=== PATIENT | female | born 1980 | race American Indian/Alaskan Native ===

== ENCOUNTER → 2018-04-23 10:20 | Outpatient (CLI) | payer OTHER, SELFPAY ==
--- NOTE | 2018-04-23 10:22 | DI.RAD.S_ITS ---
PROCEDURE: XR WRIST LT MIN 3V INDICATIONS: Left wrist pain at base of thumb TECHNIQUE: 3 views of the wrist were acquired. COMPARISON: None. FINDINGS: Bones: No fractures or dislocations. No suspicious bony lesions. First CMC joint degeneration. Scaphoid view: No fracture Soft tissues: No suspicious soft tissue calcifications. IMPRESSION: Moderate first CMC joint degeneration Dictated by: Josue Gore M.D. on 04/23/2018 at 11:42 Approved by: Josue Gore M.D. on 04/23/2018 at 11:43
== END ==
PROVIDERS: PCP Family Medicine; Visit Provider Physician Assistant
DX: M18.12 Unilateral primary osteoarthritis of first carpometacarpal joint, left hand (principal); M25.532 Pain in left wrist
CPT/HCPCS: 73110

== ENCOUNTER → 2018-08-13 08:49 | Outpatient (CLI) | payer OTHER, SELFPAY ==
[2018-08-13 11:13] LABS: Free T4, Direct Thyroxine 1.15 ng/dL (0.78-2.19)
== END ==
PROVIDERS: PCP Family Medicine; Visit Provider Family Medicine
DX: E03.9 Hypothyroidism, unspecified (principal)
CPT/HCPCS: 36415; 84439; 84443

== ENCOUNTER → 2019-01-05 07:43 | Outpatient (CLI) | payer OTHER, SELFPAY ==
[2019-01-05 09:27] LABS: Free T4, Direct Thyroxine 1.13 ng/dL (0.78-2.19)
[2019-01-05 09:41] LABS: Thyroid Stimulating Hormone 0.72 uIU/mL (0.47-4.68)
== END ==
PROVIDERS: PCP Family Medicine; Visit Provider Physician Assistant
DX: E03.9 Hypothyroidism, unspecified (principal)
CPT/HCPCS: 36415; 84439; 84443

== ENCOUNTER → 2019-03-02 07:53 | Outpatient (CLI) | payer OTHER, SELFPAY ==
[2019-03-02 09:50] LABS: Free T4, Direct Thyroxine 1.38 ng/dL (0.78-2.19)
[2019-03-02 10:04] LABS: Thyroid Stimulating Hormone 1.05 uIU/mL (0.47-4.68)
== END ==
PROVIDERS: PCP Physician Assistant; Visit Provider Physician Assistant
DX: E03.9 Hypothyroidism, unspecified (principal)
CPT/HCPCS: 36415; 84439; 84443

== ENCOUNTER → 2020-03-17 08:04 | Outpatient (CLI) | payer OTHER, SELFPAY ==
[2020-03-17 09:17] LABS: Hemoglobin A1C% w Est Avg Glu 5.5 % (4.0-6.0)
[2020-03-17 09:27] LABS: Alanine Aminotransferase 21 IU/L (<35); Albumin 4.4 g/dL (3.5-5.0); Albumin Globulin Ratio 1.6 (1.0-2.8); Alkaline Phosphatase 91 U/L (38-126); Aspartate Aminotransferase 30 IU/L (14-36); Bilirubin Total 0.4 mg/dL (0.2-1.3); Blood Urea Nitrogen 17 mg/dL (7-17); Calcium 9.2 mg/dL (8.4-10.2); Carbon Dioxide 25 mmol/L (22-32); Chloride 104 mmol/L (98-107); Cholesterol 148 mg/dL (140-199); Estimated Glomerular Filt Rate > 60.0 mL/min (>60); Globulin 2.7 g/dL (1.7-4.1); Glucose 89 mg/dL (70-100); HDL Cholesterol 43 mg/dL (40-60); HEMOLYSIS < 15 (0-50); LDL Cholesterol Calculated 89 mg/dL (<100); Potassium 4.6 mmol/L (3.4-5.1); Sodium 138 mmol/L (137-145); Total Protein 7.1 g/dL (6.3-8.2); Triglycerides 81 mg/dL (35-150)
[2020-03-17 09:51] LABS: TSH w/ Reflex to FT4 3.02 uIU/mL (0.47-4.68)
== END ==
PROVIDERS: PCP Physician Assistant; Referring Provider Family Medicine; Visit Provider Family Medicine
DX: E03.9 Hypothyroidism, unspecified (principal)
CPT/HCPCS: 36415; 80053; 80061; 83036; 84443

== ENCOUNTER → 2020-06-20 07:10 | Outpatient (CLI) | payer OTHER, SELFPAY ==
[2020-06-20 08:49] LABS: Thyroid Stimulating Hormone 0.029 uIU/mL (0.47-4.68)
[2020-06-20 09:13] LABS: TSH w/ Reflex to FT4 0.03 uIU/mL (0.47-4.68)
[2020-06-20 09:41] LABS: Free T4, Direct Thyroxine 1.73 ng/dL (0.78-2.19)
== END ==
PROVIDERS: PCP Physician Assistant; Referring Provider Family Medicine; Visit Provider Family Medicine
DX: E03.9 Hypothyroidism, unspecified (principal)
CPT/HCPCS: 36415; 84439; 84443

== ENCOUNTER → 2020-10-11 07:58 | Outpatient (CLI) | payer OTHER, SELFPAY ==
[2020-10-11 10:02] LABS: Add Manual Diff / Slide Review NO; Basophils Absolute Auto 0 /uL (0-100); Basophils Percent Auto 0.6 % (0-2); Eosinophils Absolute Auto 100 /uL (0-450); Eosinophils Percent Auto 1.8 % (2-4); Hematocrit 39.4 % (36-46); Hemoglobin 12.7 g/dL (12.0-16.0); Lymphocytes Absolute Auto 2000 /uL (1100-4500); Lymphocytes Percent Auto 30.8 % (25-40); Mean Corpuscular HGB Conc 32.3 % (30-36); Mean Corpuscular Hemoglobin 25.7 PG (26-34); Mean Corpuscular Volume 79.6 fL (80-100); Monocytes Absolute Auto 400 /uL (0-900); Monocytes Percent Auto 5.5 % (3-14); Neutrophils Absolute Auto 3900 /uL (1500-7000); Neutrophils Percent Auto 61.3 % (50-75); Platelet Count 221 X10^3/uL (150-400); Red Blood Cell Count 4.95 X10^6/uL (4.0-5.2); Red Cell Distribution Width 15.4 % (11.6-14.8); White Blood Cell Count 6.4 X10^3/uL (4.5-11.0)
[2020-10-11 10:55] LABS: Thyroid Stimulating Hormone 0.991 uIU/mL (0.47-4.68)
== END ==
PROVIDERS: PCP Physician Assistant; Referring Provider Family Medicine; Visit Provider Family Medicine
DX: E03.9 Hypothyroidism, unspecified (principal); Z13.0 Encounter for screening for diseases of the blood and blood-forming organs and certain disorders involving the immune mechanism
CPT/HCPCS: 36415; 84443; 85025

== ENCOUNTER → 2021-04-03 09:01 | Outpatient (CLI) | payer OTHER, SELFPAY ==
[2021-04-03 09:53] LABS: Add Manual Diff / Slide Review NO; Basophils Absolute Auto 0 /uL (0-100); Basophils Percent Auto 0.5 % (0-2); Eosinophils Absolute Auto 100 /uL (0-450); Eosinophils Percent Auto 1.6 % (2-4); Hemoglobin 14.6 g/dL (12.0-16.0); Lymphocytes Absolute Auto 1800 /uL (1100-4500); Lymphocytes Percent Auto 21.7 % (25-40); Mean Corpuscular Volume 88.3 fL (80-100); Monocytes Absolute Auto 300 /uL (0-900); Neutrophils Absolute Auto 6200 /uL (1500-7000); Neutrophils Percent Auto 73.2 % (50-75); Platelet Count 214 X10^3/uL (150-400); Red Blood Cell Count 4.87 X10^6/uL (4.0-5.2); Red Cell Distribution Width 13.3 % (11.6-14.8); White Blood Cell Count 8.5 X10^3/uL (4.5-11.0)
== END ==
PROVIDERS: PCP Physician Assistant; Referring Provider Family Medicine; Visit Provider Family Medicine
DX: E03.9 Hypothyroidism, unspecified (principal); Z13.0 Encounter for screening for diseases of the blood and blood-forming organs and certain disorders involving the immune mechanism
CPT/HCPCS: 36415; 84443; 85025

== ENCOUNTER → 2022-01-01 10:29 | Outpatient (CLI) | payer OTHER, SELFPAY ==
[2022-01-01 12:23] LABS: Prolactin 26.6 ng/mL (3.0-18.6)
[2022-01-01 12:35] LABS: Follicle Stimulating Hormone 3.07 mIU/mL
[2022-01-01 12:36] LABS: Thyroid Stimulating Hormone 1.12 uIU/mL (0.47-4.68)
== END ==
PROVIDERS: PCP Physician Assistant; Referring Provider Physician Assistant; Visit Provider Physician Assistant
DX: E03.9 Hypothyroidism, unspecified (principal); F33.1 Major depressive disorder, recurrent, moderate; N92.6 Irregular menstruation, unspecified
CPT/HCPCS: 36415; 83001; 84146; 84443

== ENCOUNTER → 2022-01-07 08:05 | Outpatient (CLI) | payer OTHER, SELFPAY ==
[2022-01-07 09:46] LABS: Prolactin 11.6 ng/mL (3.0-18.6)
== END ==
PROVIDERS: PCP Physician Assistant; Referring Provider Physician Assistant; Visit Provider Physician Assistant
DX: N92.6 Irregular menstruation, unspecified (principal)
CPT/HCPCS: 36415; 84146

== ENCOUNTER → 2022-02-19 11:21 | Outpatient (CLI) | payer OTHER, SELFPAY ==
--- NOTE | 2022-02-19 11:23 | DI.US.S_ITS ---
PROCEDURE: US PELVIC COMPLETE INDICATIONS: Irregular menstral bleeding TECHNIQUE: Real-time scanning was performed of the pelvic organs, with image documentation. Additional endovaginal scanning was necessary due to incomplete visualization of the adnexal and endometrial structures by transabdominal scanning. COMPARISON: None. FINDINGS: Uterus: Uterus is anteverted and mildly prominent in size at 11 x 4.8 x 5.6 cm. The myometrium is heterogeneous. The endometrium measures 8.3 mm combined thickness. Along the endometrial stripe, there is a 1.3 by 0.4 x 0.6 cm echogenic focus, which may be related to a polyp, yet no vascular stock can be seen. Ovaries: The ovaries are overall not well seen, secondary to body habitus and overlying bowel gas. The right ovary measures 2.7 x 2.3 x 3.1 cm, with a calculated ovarian volume of 10 cc. The left ovary measures 3.2 x 2.6 x 3.1 cm, with a calculated ovarian volume of 13.4 cc. The ovaries have a normal sonographic appearance. Less than 12 follicles can be seen in each ovary. No adnexal masses are seen. Other: No pathologic free abdominal or pelvic fluid. IMPRESSION: There is a potential 1.3 cm endometrial polyp seen. - Please consider short-term follow-up versus sonohysterogram for further evaluation. We strive to produce accurate, complete, and clear reports of imaging services. To assist us in improving patient care, this report was composed using standard report templates and voice recognition software. Therefore, it may contain abnormal punctuation, insertions and/or omissions. Occasional wrong-word or sound-alike substitutions may occur. Though we review the report and make efforts to correct it, we do recommend that the report be read carefully in proper context to recognize any text inaccuracies. Dictated by: David Kim M.D. on 02/19/2022 at 12:54 Approved by: David Kim M.D. on 02/19/2022 at 12:57
== END ==
PROVIDERS: PCP Physician Assistant; Referring Provider Obstetrics & Gynecology; Visit Provider Obstetrics & Gynecology
DX: N92.6 Irregular menstruation, unspecified (principal)
CPT/HCPCS: 76830; 76856

== ENCOUNTER → 2022-03-19 10:33 | Outpatient (CLI) | payer OTHER, SELFPAY ==
[2022-03-19 12:29] LABS: Free T3, Triiodothyronine Free 3.64 pg/mL (2.77-5.27); Free T4, Direct Thyroxine 2.63 ng/dL (0.78-2.19)
[2022-03-19 12:55] LABS: Thyroid Stimulating Hormone < 0.015 uIU/mL (0.47-4.68)
== END ==
PROVIDERS: PCP Physician Assistant; Referring Provider Obstetrics & Gynecology; Visit Provider Obstetrics & Gynecology
DX: E03.9 Hypothyroidism, unspecified (principal)
CPT/HCPCS: 36415; 84439; 84443; 84481

== ENCOUNTER → 2022-03-21 14:39 | Outpatient (CLI) | payer OTHER, SELFPAY ==
[2022-03-21 15:29] LABS: COVID19 -Nasal RAPID Negative (Negative)
== END ==
PROVIDERS: PCP Physician Assistant; Visit Provider Obstetrics & Gynecology
DX: Z01.812 Encounter for preprocedural laboratory examination (principal); Z20.822 Contact with and (suspected) exposure to COVID-19
CPT/HCPCS: 87635

== ENCOUNTER 2022-03-22 09:29 | Day surgery (SDC) | payer OTHER, SELFPAY ==
[2022-03-18 13:50] VITALS: BMI 35.5
--- NOTE | 2022-03-22 | PATH_ITS ---
[facility] Accession Number: [id number] . 01 Material submitted: . endometrium - ENDOMETRIAL CURETTINGS . 01 Clinical history: . D/C HYSTEROSCOPY W/POLYPECTOMY . 01 Diagnosis: Endometrial Curettings: Portions of proliferative endometrium with patchy regions of stromal breakdown; negative for glandular hyperplasia, cytologic atypia, or malignancy. Some endometrial fragments demonstrate prominent vessels, suggestive of polyp, if clinical and imaging studies are concordant. MRV 03/26/2022 1118 Local . 01 Electronically signed: . Meghna Randle MD, Pathologist NPI- [id number] . 01 Gross description: . Received in formalin, labeled with the patient's name and endometrial curettings, and consists of multiple red-brown soft tissue fragments admixed with mucohemorrhagic material aggregating to 2.6 x 2.3 x 0.4 cm. The specimen is filtered into a biopsy bag and submitted entirely in cassette A1. ([id number]) /[facility] 03/23/2022 1328 Local . 01 Pathologist provided ICD-10: N92.6 . 01 CPT . 917138 Specimen Comment: A courtesy copy of this report has been sent to [phone] Performed at: 01 [facility] [address], [place], [place] [id number] MD Landen Haynes MD Phone: [phone]
[2022-03-22 09:57] VITALS: BMI 35.5
[2022-03-22 10:07] VITALS: BP 134/87; PULSE 73; RESP 12; TEMP 36.2; O2SAT 99
[2022-03-22] MEDS: LACTATED RINGERS 1,000 ML 100 ML IV (10:44)
--- NOTE | 2022-03-22 11:28 | PM.PREOP ---
Pre-operative Note COVID-19 COVID-19 status: Negative Result date/Date tested (Pos, Neg/Pending): 03/21/22 Criteria for continued procedure: Non-surgical alternatives not available or appropriate per current SOC Interval Note History & Physical reviewed/Exam performed by Physician: Yes Changes to H&P: No H&P completed within 30 days and has changed as indicated here:: 03/19/22
--- NOTE | 2022-03-22 11:30 | PM.GYNOP.1 ---
Operative Date/Time/Diagnoses Date of procedure: 03/22/22 Time of procedure: 11:30 Procedure & Clinicians Procedure: Procedures Operation Date: 03/22/22 11:00 <No data on this case meets the specified criteria>
[2022-03-22] MEDS: ACETAMINOPHEN 325 MG TABLET 975 MG PO (11:35)
--- NOTE | 2022-03-22 12:28 | SUR.OPER ---
Lithotomy on padded OR bed, head on pillow, arms secured on padded arm boards at <90 degrees abduction. Legs secured in padded yellow fins stirrups. Patient glasses brought with patient to the OR and then to PACU. Patient requested.
[2022-03-22 12:35] VITALS: BP 100/67; PULSE 82; RESP 14; TEMP 36.1; O2SAT 99
--- NOTE | 2022-03-22 12:37 | PM.GYNOP.1 ---
Operative Date/Time/Diagnoses Date of procedure: 03/22/22 Time of procedure: 12:37 Pre-op diagnosis: Abnormal uterine bleeding Dysmenorrhea Post-op diagnosis: same Procedure & Clinicians Procedure: Procedures Operation Date: 03/22/22 11:00 Actual Procedure Side Surgeon janette Parish Hysteroscopy Gina Dennis MD and Novasure endometrial ablation Indications: Abnormal uterine bleeding Dysmenorrhea Surgeon: Gina Dennis Anesthesia Type: General (LMA) Operative Notes Findings: 8 week size anteverted uterus Large amount of endometrial curettings Both fallopian tube ostia observed Closure Type: not applicable Specimen(s): endometrial curettings Estimated blood loss (mL): 10 Blood products transfused: none Procedure in detail: After informed consent was obtained, the patient was taken to the operating room where she was placed in the dorsal supine position. After adequate LMA general anesthesia was achieved, she was placed in the dorsal lithotomy position, and prepped and draped in the usual sterile fashion. A time-out was performed. A bivalve speculum was placed into the vagina and the anterior lip of the cervix was grasped with a single-tooth tenaculum. The cervical os was sequentially dilated until the hysteroscope could pass easily into the endometrial cavity. Inspection with the hysteroscope revealed both fallopian tube ostia. There was a small amount of thickened endometrial lining. The hysteroscope was removed. Sharp curettage was performed yielding a moderate amount of endometrial curettings. The sure sound was placed into the endometrial cavity and the cervical stopper deployed. This was pulled against the internal os. The endometrial cavity was measured from the fundus to the internal os and measured 6 cm. This was set on the NovaSure generator and the catheter. The sure sound was removed. The NovaSure catheter passed easily into the endometrial cavity to the fundus of the uterus. Catheter was opened. The with was 3 cm. This was set on the generator. This indicated a power of 107 w. The cervix was capped, the cavity assessment was performed and passed. The cycle was initiated and lasted 41 seconds. At the completion of the cycle the NovaSure catheter was closed, the cervix was uncapped, and the catheter was removed from the uterus. The single-tooth tenaculum was removed from the anterior lip of the cervix. The bivalve speculum was removed from the vagina. Sponge, lap, and instrument counts were correct x2. The patient tolerated the procedure well, and was taken to PACU in stable condition. Complications: none Post-operative Condition: stable Disposition: PACU Plan for aftercare: Home after recovery
[2022-03-22 12:40] VITALS: BP 116/69; PULSE 88; RESP 16; O2SAT 97
[2022-03-22 12:45] VITALS: BP 109/57; PULSE 78; RESP 17; O2SAT 98
[2022-03-22 13:00] VITALS: BP 102/81; PULSE 70; RESP 18; TEMP 36.1; O2SAT 99
== END 2022-03-22 13:14 | disposition home or self-care (01) ==
PROVIDERS: PCP Physician Assistant; Referring Provider Obstetrics & Gynecology; Visit Provider Obstetrics & Gynecology
PROC: 0UDB8ZZ Extraction of Endometrium, Via Natural or Artificial Opening Endoscopic (ICD-10-PCS; CPT 58558; principal; 2022-03-22 11:00)
DX: N94.6 Dysmenorrhea, unspecified (principal); N93.9 Abnormal uterine and vaginal bleeding, unspecified; E03.9 Hypothyroidism, unspecified; F32.A Depression, unspecified; F41.9 Anxiety disorder, unspecified; Z87.891 Personal history of nicotine dependence
CPT/HCPCS: 58563; 81025; J1100; J1885; J2250; J2405; J2704; J3010

== ENCOUNTER → 2022-04-09 07:57 | Outpatient (CLI) | payer OTHER, SELFPAY ==
[2022-04-09 09:34] LABS: Free T4, Direct Thyroxine 2.24 ng/dL (0.78-2.19)
== END ==
PROVIDERS: PCP Physician Assistant; Referring Provider Obstetrics & Gynecology; Visit Provider Obstetrics & Gynecology
DX: E03.9 Hypothyroidism, unspecified (principal)
CPT/HCPCS: 36415; 84439; 84443

== ENCOUNTER → 2022-05-15 07:41 | Outpatient (CLI) | payer OTHER, SELFPAY ==
[2022-05-15 10:10] LABS: Free T4, Direct Thyroxine 1.52 ng/dL (0.78-2.19)
== END ==
PROVIDERS: PCP Physician Assistant; Referring Provider Obstetrics & Gynecology; Visit Provider Obstetrics & Gynecology
DX: E03.9 Hypothyroidism, unspecified (principal)
CPT/HCPCS: 36415; 84439; 84443

== ENCOUNTER → 2022-06-04 12:55 | Outpatient (CLI) | payer OTHER, SELFPAY ==
--- NOTE | 2022-06-04 | DI.MRI.S_ITS ---
PROCEDURE: MR ANKLE RT WO CON INDICATIONS: Plantar fascial fibromatosis TECHNIQUE: Noncontrast sagittal T1 spin echo and T2 fast spin echo with fat saturation, axial proton density fast spin echo and T2 fast spin echo with fat saturation, coronal T1 spin echo and T2 fast spin echo with fat saturation through the ankle/hindfoot. COMPARISON: [facility] [place], CR, XR FOOT 3+ VIEWS RIGHT, 02/14/2022, 15:01. [facility], MR, ANKLE WITHOUT CONTRAST, 09/30/2012, 12:24. FINDINGS: Image quality: Excellent. Bones and joints: There is mild ankle soft tissue edema and swelling. No bone marrow contusions or fractures. No hindfoot coalitions. No osteochondral injuries of the talar dome. Well-defined plantar and dorsal calcaneal enthesophytes are seen. Small to moderate tibiotalar and subtalar joint effusion is noted, no gross intra-articular loose bodies. Medial structures: The posterior tibialis, flexor digitorum longus, and flexor hallucis longus tendons are intact. There is moderate amount of fluid distending flexor tendon sheath at the level of talonavicular joint and carpal bones particularly involving flexor hallucis longus tendon. The posterior tibial neurovascular bundle appears normal within the tarsal tunnel, without extrinsic mass effect. The deltoid ligament and spring ligament complex are mildly thickened. Lateral structures: The anterior talofibular and calcaneofibular ligaments are thickened. There is suggestion of low to moderate grade partial-thickness tear involving posterior talofibular ligament near its medial insertion. More superiorly, the anterior and posterior tibiofibular ligaments appear intact, as is the intermalleolar ligament. The tibiofibular syndesmosis is normal in width at 2 mm or less. The peroneus longus and brevis tendons demonstrate normal location and morphology. Adjacent bony peroneal tubercle and retrotrochlear prominence are normal in size. The sinus tarsi demonstrates normal fatty signal, without edema, fibrosis, or cyst formation. Visualized sinus tarsi components (cervical ligament, interosseous talocalcaneal ligament, roots of the inferior extensor retinaculum) appear normal. The calcaneonavicular and calcaneocuboid components of the bifurcate ligament appear intact. The dorsal calcaneocuboid ligament appears intact. Anterior structures: The tibialis anterior, extensor hallucis longus, and extensor digitorum longus tendons appear intact. The dorsal talonavicular ligament appears intact. Posterior and plantar structures: Mild distal Achilles tendinosis at its posterior calcaneal insertion is seen. Mildly thickened medial band of plantar fascia at its calcaneal insertion is noted with minimal amount of adjacent soft tissue edema. No abductor digiti quinti muscle atrophy to suggest Cesar neuropathy. IMPRESSION: 1. No marrow edema. No fracture or dislocation. No osteochondral injuries of talar dome. Small to moderate joint effusion, no gross loose bodies. 2. Low to moderate grade tenosynovitis involving flexor tendons particularly flexor hallucis longus tendon as above. Extensor and peroneus tendons are intact. 3. Low-grade medial ankle ligament sprain. 4. Sprain involving anterior talofibular ligament and calcaneofibular ligament. Low to moderate grade partial-thickness tear involving posterior talofibular ligament near its talus insertion. 5. Well-defined plantar and dorsal calcaneal enthesophytes with mild distal Achilles tendinosis at its posterior calcaneal insertion and very mild plantar fasciitis involving medial band of plantar fascia at its calcaneal insertion. Dictated by: Jeremias Xie M.D. on 06/04/2022 at 16:44 Approved by: Jeremias Xie M.D. on 06/04/2022 at 16:50
== END ==
PROVIDERS: PCP Physician Assistant; Referring Provider Podiatrist; Visit Provider Podiatrist
DX: M72.2 Plantar fascial fibromatosis (principal); S93.491A Sprain of other ligament of right ankle, initial encounter; S93.411A Sprain of calcaneofibular ligament of right ankle, initial encounter; M77.31 Calcaneal spur, right foot; M65.871 Other synovitis and tenosynovitis, right ankle and foot; M25.471 Effusion, right ankle
CPT/HCPCS: 73721

== ENCOUNTER → 2022-06-28 07:58 | Outpatient (CLI) | payer OTHER, SELFPAY ==
[2022-06-28 09:05] LABS: Free T4, Direct Thyroxine 1.93 ng/dL (0.78-2.19)
[2022-06-28 09:18] LABS: Thyroid Stimulating Hormone 2.36 uIU/mL (0.47-4.68)
== END ==
PROVIDERS: PCP Physician Assistant; Referring Provider Obstetrics & Gynecology; Visit Provider Obstetrics & Gynecology
DX: E03.9 Hypothyroidism, unspecified (principal)
CPT/HCPCS: 36415; 84439; 84443

== ENCOUNTER → 2022-12-25 07:53 | Outpatient (CLI) | payer OTHER, SELFPAY ==
[2022-12-25 10:07] LABS: Free T4, Direct Thyroxine 1.68 ng/dL (0.78-2.19)
== END ==
PROVIDERS: PCP Physician Assistant; Referring Provider Internal Medicine Endocrinology, Diabetes & Metabolism; Visit Provider Internal Medicine Endocrinology, Diabetes & Metabolism
DX: E03.8 Other specified hypothyroidism (principal); E06.3 Autoimmune thyroiditis
CPT/HCPCS: 36415; 84439; 84443

== ENCOUNTER → 2023-04-08 07:45 | Outpatient (CLI) | payer OTHER, SELFPAY ==
[2023-04-08 10:51] LABS: Free T4, Direct Thyroxine 1.85 ng/dL (0.78-2.19)
== END ==
PROVIDERS: PCP Physician Assistant; Referring Provider Internal Medicine Endocrinology, Diabetes & Metabolism; Visit Provider Internal Medicine Endocrinology, Diabetes & Metabolism
DX: E03.8 Other specified hypothyroidism (principal); E06.3 Autoimmune thyroiditis
CPT/HCPCS: 36415; 84439; 84443

== ENCOUNTER → 2023-04-10 16:12 | Outpatient (CLI) | payer OTHER, SELFPAY ==
[2023-04-10 17:19] LABS: Basophils Absolute Auto 100 /uL (0-100); Basophils Percent Auto 0.8 % (0-2); Eosinophils Absolute Auto 200 /uL (0-450); Eosinophils Percent Auto 1.8 % (2-4); Hematocrit 44.3 % (36-46); Hemoglobin 15.3 g/dL (12.0-16.0); Lymphocytes Absolute Auto 2400 /uL (1100-4500); Lymphocytes Percent Auto 25.8 % (25-40); Mean Corpuscular HGB Conc 34.5 % (30-36); Mean Corpuscular Hemoglobin 30.4 PG (26-34); Monocytes Absolute Auto 500 /uL (0-900); Monocytes Percent Auto 5.7 % (3-14); Neutrophils Absolute Auto 6300 /uL (1500-7000); Neutrophils Percent Auto 65.9 % (50-75); Platelet Count 250 X10^3/uL (150-400); Red Blood Cell Count 5.03 X10^6/uL (4.0-5.2); Red Cell Distribution Width 12.5 % (11.6-14.8); White Blood Cell Count 9.5 X10^3/uL (4.5-11.0)
[2023-04-10 17:30] LABS: Alanine Aminotransferase 23 IU/L (<35); Albumin 4.7 g/dL (3.5-5.0); Albumin Globulin Ratio 1.4 (1.0-2.8); Alkaline Phosphatase 72 U/L (38-126); Aspartate Aminotransferase 29 IU/L (14-36); BUN Creatinine Ratio 17.6 (6-22); Bilirubin Total 0.4 mg/dL (0.2-1.3); Blood Urea Nitrogen 13 mg/dL (7-17); C-Reactive Protein Quant < 0.5 mg/dL (<1.0); Calcium 9.5 mg/dL (8.4-10.2); Carbon Dioxide 25 mmol/L (22-32); Chloride 103 mmol/L (98-107); Cholesterol 174 mg/dL (140-199); Estimated Glomerular Filt Rate > 60 mL/min (>60); Globulin 3.3 g/dL (1.7-4.1); Glucose 89 mg/dL (70-100); HDL Cholesterol 44 mg/dL (40-60); HEMOLYSIS 21 (0-50); LDL Cholesterol Calculated 110 mg/dL (<100); Sodium 138 mmol/L (137-145); Triglycerides 101 mg/dL (35-150)
[2023-04-10 17:34] LABS: Add Manual Diff / Slide Review SLIDE REVIEW
[2023-04-10 17:35] LABS: RBC Morphology Normal Morphology
[2023-04-10 17:57] LABS: Erythrocyte Sedimentation Rate 3 MM/HR (0-20)
[2023-04-10 18:02] LABS: Ferritin 58 ng/mL (6-137)
[2023-04-14 13:24] LABS: Albumin 4.2 g/dL (2.9-4.4); Alpha-1-Globulin 0.3 g/dL (0.0-0.4); Alpha-2-Globulin 0.7 g/dL (0.4-1.0); Gamma Globulin 1.2 g/dL (0.4-1.8); Globulin Total 3.2 g/dL (2.2-3.9); Protein, Total 7.4 g/dL (6.0-8.5)
[2023-04-14 18:11] LABS: ANA Screen, IFA Positive (.)
== END ==
PROVIDERS: PCP Physician Assistant; Referring Provider Physician Assistant; Visit Provider Physician Assistant
DX: L40.9 Psoriasis, unspecified (principal); M25.541 Pain in joints of right hand; M25.542 Pain in joints of left hand; K13.0 Diseases of lips; E66.9 Obesity, unspecified
CPT/HCPCS: 36415; 80053; 80061; 82728; 84155; 84165; 85025; 85651; 86038; 86140

== ENCOUNTER → 2023-10-01 07:33 | Outpatient (CLI) | payer OTHER, SELFPAY ==
[2023-10-01 08:10] LABS: Add Manual Diff / Slide Review NO; Basophils Absolute Auto 100 /uL (0-100); Basophils Percent Auto 0.7 % (0-2); Eosinophils Absolute Auto 200 /uL (0-450); Eosinophils Percent Auto 2.3 % (2-4); Hematocrit 42.7 % (36-46); Hemoglobin 14.8 g/dL (12.0-16.0); Lymphocytes Absolute Auto 2000 /uL (1100-4500); Lymphocytes Percent Auto 26.4 % (25-40); Mean Corpuscular HGB Conc 34.6 % (30-36); Mean Corpuscular Hemoglobin 31.2 PG (26-34); Mean Corpuscular Volume 90.3 fL (80-100); Monocytes Absolute Auto 400 /uL (0-900); Monocytes Percent Auto 5.4 % (3-14); Neutrophils Absolute Auto 4900 /uL (1500-7000); Neutrophils Percent Auto 65.2 % (50-75); Platelet Count 260 X10^3/uL (150-400); Red Blood Cell Count 4.73 X10^6/uL (4.0-5.2); White Blood Cell Count 7.5 X10^3/uL (4.5-11.0)
[2023-10-01 08:34] LABS: Erythrocyte Sedimentation Rate 1 MM/HR (0-20)
[2023-10-01 08:49] LABS: Alanine Aminotransferase 38 IU/L (<35); Albumin 4.3 g/dL (3.5-5.0); Albumin Globulin Ratio 1.5 (1.0-2.8); Alkaline Phosphatase 84 U/L (38-126); Aspartate Aminotransferase 28 IU/L (14-36); BUN Creatinine Ratio 20.8 (6-22); Bilirubin Total 0.5 mg/dL (0.2-1.3); Blood Urea Nitrogen 15 mg/dL (7-17); C-Reactive Protein Quant 0.7 mg/dL (<1.0); Calcium 9.2 mg/dL (8.4-10.2); Carbon Dioxide 26 mmol/L (22-32); Chloride 106 mmol/L (98-107); Estimated Glomerular Filt Rate > 60 mL/min (>60); Globulin 2.8 g/dL (1.7-4.1); Glucose 95 mg/dL (70-100); HEMOLYSIS < 15 (0-50); Potassium 4.6 mmol/L (3.4-5.1); Sodium 138 mmol/L (137-145); Total Protein 7.1 g/dL (6.3-8.2)
== END ==
LOC: LAB 07:35
PROVIDERS: PCP Physician Assistant; Referring Provider Specialist/Technologist Athletic Trainer; Visit Provider Specialist/Technologist Athletic Trainer
DX: L40.50 Arthropathic psoriasis, unspecified (principal); F32.81 Premenstrual dysphoric disorder
CPT/HCPCS: 36415; 80053; 85025; 85651; 86140

== ENCOUNTER → 2024-07-21 14:13 | Outpatient (CLI) | payer OTHER, SELFPAY | PROVIDERS: PCP Physician Assistant; Visit Provider Nurse Practitioner Family | DX: J02.9 Acute pharyngitis, unspecified (principal) | CPT/HCPCS: 87070 ==

== ENCOUNTER → 2025-03-29 14:05 | Outpatient (CLI) | payer OTHER, SELFPAY | PROVIDERS: PCP Physician Assistant; Visit Provider Chiropractor | DX: J02.9 Acute pharyngitis, unspecified (principal) | CPT/HCPCS: 87070 ==

== ENCOUNTER → 2025-05-11 08:44 | Outpatient (CLI) | payer OTHER, SELFPAY ==
[2025-05-11 09:24] LABS: Hemoglobin A1C% w Est Avg Glu 4.9 % (4.0-6.0)
[2025-05-11 09:48] LABS: Follicle Stimulating Hormone 5.70 mIU/mL
[2025-05-11 09:49] LABS: Free T4, Direct Thyroxine 1.86 ng/dL (0.78-2.19)
[2025-05-11 10:03] LABS: Estradiol, Total 91.4 pg/mL; Thyroid Stimulating Hormone 8.07 uIU/mL (0.47-4.68)
== END ==
PROVIDERS: PCP Physician Assistant; Referring Provider Physician Assistant; Visit Provider Internal Medicine Endocrinology, Diabetes & Metabolism
DX: E06.3 Autoimmune thyroiditis (principal)
CPT/HCPCS: 36415; 82670; 83001; 83036; 84439; 84443